=== PATIENT | female | born 1950 | race African-American/Black ===

== ENCOUNTER → 2017-09-26 | Day surgery (SDC) | payer BC ==
[~2017-09-26] MED LIST: IV RINGERS,LACTATED 1000ML 1,000 ML IV; LIDOCAINE 1% PF 2 ML VIAL. ID; MIDAZOLAM HCL/PF 2 MG/2 ML VIAL. IV; PROPOFOL 20 ML IV; fentaNYL PF VIAL 100 MCG/2 ML VIAL IV
[2017-09-26] MEDS: IV RINGERS,LACTATED 1000ML 1,000 ML IV (07:55)
== END | disposition home or self-care (01) ==
LOC: SURG 07:18
DX: Z09 Encounter for follow-up examination after completed treatment for conditions other than malignant neoplasm (principal); Z86.010 Personal history of colon polyps; D12.4 Benign neoplasm of descending colon; K64.0 First degree hemorrhoids; K57.30 Diverticulosis of large intestine without perforation or abscess without bleeding; E78.00 Pure hypercholesterolemia, unspecified; I10 Essential (primary) hypertension; Z86.69 Personal history of other diseases of the nervous system and sense organs; M19.91 Primary osteoarthritis, unspecified site; Z90.710 Acquired absence of both cervix and uterus; Z87.39 Personal history of other diseases of the musculoskeletal system and connective tissue; Z72.0 Tobacco use
CPT/HCPCS: 45385; 88305; J2704